=== PATIENT | female | born 1995 | race Caucasian/White ===

== ENCOUNTER 2017-08-08 15:38 | Emergency (ER) | payer BC, OTHER ==
[~2017-08-08] VITALS: Ht 167.6 cm; Wt 49.9 kg
[~2017-08-08 15:38] MED LIST: ESCI20TA; LAM100T; TRAZ100T2
[2017-08-08 16:01] VITALS: BP 138/90
== END 2017-08-08 16:19 | disposition left against medical advice (07) ==
LOC: ER 15:38 → EDBD 15:38 → ER 16:19
DX: R07.89 Other chest pain (principal); R10.9 Unspecified abdominal pain; R20.0 Anesthesia of skin; Z53.21 Procedure and treatment not carried out due to patient leaving prior to being seen by health care provider
CPT/HCPCS: 93005